=== PATIENT | male | born 1970 | race Caucasian/White ===

== ENCOUNTER 2023-04-29 15:38 | Emergency (ER) | payer OTHER, SELFPAY ==
[2023-04-29] MEDS ORDERED: Boostrix 0.5 ML (Tdap) VIAL (>/=7 yrs of age) ONE (16:21)
[2023-04-29] MEDS ORDERED: Bacitracin 1 PK ONE (18:20)
== END 2023-04-29 18:23 | disposition home or self-care (01) ==
LOC: EDBD 15:38 → ERS 15:38
DX: S81.012A Laceration without foreign body, left knee, initial encounter (principal); F17.210 Nicotine dependence, cigarettes, uncomplicated; W26.8XXA Contact with other sharp object(s), not elsewhere classified, initial encounter; Z23 Encounter for immunization
CPT/HCPCS: 12001; 90471; 90715